=== PATIENT | female | born 1970 | race Caucasian/White ===

== ENCOUNTER → 2018-03-05 | Outpatient (CLI) | payer OTHER | LOC: LAB 07:20 | DX: J03.90 Acute tonsillitis, unspecified (principal) ==

== ENCOUNTER → 2018-05-17 | Outpatient (CLI) | payer OTHER ==
[2018-05-17 14:22] LABS: ALBUMIN 4.4 g/dL (3.5-5.0); AST-SGOT 29 U/L (14-36); CALCIUM 9.9 mg/dL (8.4-10.2); CARBON DIOXIDE 25 mmol/L (22-30); GLUCOSE 88 mg/dL (65-105); POTASSIUM 3.8 mmol/L (3.6-5.0); SODIUM 141 mmol/L (137-145); TOTAL BILIRUBIN 0.5 mg/dL (0.2-1.3); TOTAL PROTEIN 7.7 g/dL (6.3-8.2)
[2018-05-17 14:23] LABS: ALT/SGPT < 3 U/L (9-52)
[2018-05-17 14:24] LABS: EOS # 0.2 (0.04-0.40); EOS % 1.7 % (1.0-5.0); HEMATOCRIT 41.7 % (37.0-47.0); LYMPH# 2.5 (1.50-4.00); MEAN CELL VOLUME 86 fl (78-100); MEAN CORPUSCULAR HEMOGLOBIN 27 pg (27-31); MEAN CORPUSCULAR HGB CONC 31 g/dL (33-37); MEAN PLATELET VOLUME 9.9 fl (7.4-10.4); MONO # 0.9 (0.20-0.80); NEU # 5.2 (1.40-6.50); PLATELET COUNT 363 K/mm3 (130-400); RED BLOOD COUNT 4.87 M/mm3 (4.10-5.30); RED CELL DISTRIBUTION WIDTH 16.5 % (11.5-14.5); WHITE BLOOD COUNT 8.8 K/mm3 (4.8-10.8)
== END ==
LOC: LAB 13:43
PROVIDERS: Family Medicine
DX: Z01.419 Encounter for gynecological examination (general) (routine) without abnormal findings (principal); E03.9 Hypothyroidism, unspecified; E66.9 Obesity, unspecified; E61.1 Iron deficiency

== ENCOUNTER → 2019-05-16 | Outpatient (CLI) | payer OTHER ==
[2019-05-16 16:51] LABS: HEMATOCRIT 45.6 % (37.0-47.0); HEMOGLOBIN 14.4 g/dL (12.5-16.0); MEAN CELL VOLUME 94 fl (78-100); MEAN CORPUSCULAR HEMOGLOBIN 30 pg (27-31); MEAN CORPUSCULAR HGB CONC 32 g/dL (33-37); MEAN PLATELET VOLUME 9.3 fl (7.4-10.4); PLATELET COUNT 363 K/mm3 (130-400); RED BLOOD COUNT 4.85 M/mm3 (4.10-5.30); RED CELL DISTRIBUTION WIDTH 14.1 % (11.5-14.5); WHITE BLOOD COUNT 9.6 K/mm3 (4.8-10.8)
[2019-05-16 16:59] LABS: POTASSIUM 3.8 mmol/L (3.5-5.1)
[2019-05-16 17:00] LABS: ALBUMIN 4.3 g/dL (3.5-5.0)
[2019-05-16 17:01] LABS: CALCIUM 10.3 mg/dL (8.3-10.5)
[2019-05-16 17:02] LABS: TOTAL PROTEIN 7.8 g/dL (6.4-8.3)
[2019-05-16 17:04] LABS: TOTAL BILIRUBIN 0.3 mg/dL (0.2-1.2)
[2019-05-16 17:23] LABS: LYMPHOCYTE 32 % (20-51); MONOCYTE 10 % (3-10); NEUTROPHILS 58 % (42-75)
[2019-05-19 05:55] LABS: BAKERS YEAST ALLERGEN COUNT <0.35 kU/L (<0.35); CORN ALLERGEN COUNT <0.35 kU/L (<0.35); EGG WHITE ALLERGEN COUNT <0.35 kU/L (<0.35); MILK ALLERGEN COUNT <0.35 kU/L (<0.35); ORANGE ALLERGEN COUNT <0.35 kU/L (<0.35); PEANUT ALLERGEN COUNT <0.35 kU/L (<0.35); RICE ALLERGEN COUNT <0.35 kU/L (<0.35); SOYBEAN ALLERGEN COUNT <0.35 kU/L (<0.35); STRAWBERRY ALLERGEN COUNT <0.35 kU/L (<0.35); TOMATO ALLERGEN COUNT <0.35 kU/L (<0.35)
[2019-05-19 05:56] LABS: WHEAT ALLERGEN COUNT <0.35 kU/L (<0.35)
== END ==
LOC: LAB 16:31
PROVIDERS: Family Medicine
DX: E78.5 Hyperlipidemia, unspecified (principal); E03.9 Hypothyroidism, unspecified; K14.0 Glossitis; Z91.018 Allergy to other foods; R03.0 Elevated blood-pressure reading, without diagnosis of hypertension

== ENCOUNTER → 2019-07-20 | Outpatient (CLI) | payer OTHER | LOC: RAD 10:15 | DX: S52.124A Nondisplaced fracture of head of right radius, initial encounter for closed fracture (principal) ==

== ENCOUNTER 2019-11-28 08:30 | Outpatient (RCR) | payer OTHER | END 2019-11-28 09:00 | disposition still patient (30) | LOC: OT 08:30 | DX: S52.021B Displaced fracture of olecranon process without intraarticular extension of right ulna, initial encounter for open fracture type I or II (principal); S52.101A Unspecified fracture of upper end of right radius, initial encounter for closed fracture ==

== ENCOUNTER 2020-01-23 08:30 | Outpatient (RCR) | payer OTHER | END 2020-01-23 09:00 | disposition home or self-care (01) | LOC: OT 08:30 | DX: S52.101D Unspecified fracture of upper end of right radius, subsequent encounter for closed fracture with routine healing (principal) ==

== ENCOUNTER → 2020-05-06 | Outpatient (CLI) | payer OTHER ==
[2020-05-06 09:32] LABS: EOS # 0.1 (0.04-0.40); EOS % 1.4 % (1.0-5.0); HEMATOCRIT 43.8 % (37.0-47.0); HEMOGLOBIN 13.7 g/dL (12.5-16.0); LYMPH# 2.1 (1.50-4.00); MEAN CELL VOLUME 94 fl (78-100); MEAN CORPUSCULAR HEMOGLOBIN 30 pg (27-31); MEAN CORPUSCULAR HGB CONC 31 g/dL (33-37); MEAN PLATELET VOLUME 9.2 fl (7.4-10.4); MONO # 0.8 (0.20-0.80); NEU # 5.3 (1.40-6.50); PLATELET COUNT 340 K/mm3 (130-400); RED BLOOD COUNT 4.65 M/mm3 (4.10-5.30); RED CELL DISTRIBUTION WIDTH 13.9 % (11.5-14.5); WHITE BLOOD COUNT 8.4 K/mm3 (4.8-10.8)
[2020-05-06 09:38] LABS: POTASSIUM 4.2 mmol/L (3.5-5.1)
[2020-05-06 09:40] LABS: CALCIUM 9.1 mg/dL (8.3-10.5)
[2020-05-06 09:41] LABS: TOTAL PROTEIN 7.5 g/dL (6.4-8.3)
[2020-05-06 09:43] LABS: TOTAL BILIRUBIN 0.6 mg/dL (0.2-1.2)
== END ==
LOC: VAS 08:58 → LAB 08:58
PROVIDERS: Family Medicine
DX: R73.9 Hyperglycemia, unspecified (principal); R79.89 Other specified abnormal findings of blood chemistry

== ENCOUNTER → 2021-02-12 | Outpatient (CLI) | payer OTHER | LOC: RAD 09:19 | DX: M19.071 Primary osteoarthritis, right ankle and foot (principal) ==

== ENCOUNTER → 2021-05-13 | Outpatient (CLI) | payer OTHER ==
[2021-05-13 09:24] LABS: BASO # 0.06 K/mm3 (0.02-0.10); EOS # 0.12 K/mm3 (0.04-0.40); EOS % 1.3 % (1.0-5.0); HEMATOCRIT 43.8 % (37.0-47.0); HEMOGLOBIN 14.4 g/dL (12.5-16.0); LYMPH# 2.48 K/mm3 (1.50-4.00); MEAN CELL VOLUME 92 fl (78-100); MEAN CORPUSCULAR HEMOGLOBIN 30 pg (27-31); MEAN CORPUSCULAR HGB CONC 33 g/dL (33-37); MONO # 0.76 K/mm3 (0.20-0.80); NEU # 5.76 K/mm3 (1.40-6.50); PLATELET COUNT 329 K/mm3 (130-400); RED BLOOD COUNT 4.75 M/mm3 (4.10-5.30); RED CELL DISTRIBUTION WIDTH 13.6 % (11.5-14.5); WHITE BLOOD COUNT 9.2 K/mm3 (4.8-10.8)
[2021-05-13 12:57] LABS: ALBUMIN 4.1 g/dL (3.5-5.0)
[2021-05-13 12:58] LABS: CALCIUM 9.6 mg/dL (8.3-10.5)
[2021-05-13 12:59] LABS: TOTAL PROTEIN 7.4 g/dL (6.4-8.3)
[2021-05-13 13:01] LABS: TOTAL BILIRUBIN 0.9 mg/dL (0.2-1.2)
== END ==
LOC: LAB 09:02
PROVIDERS: Family Medicine
DX: Z00.00 Encounter for general adult medical examination without abnormal findings (principal); E78.5 Hyperlipidemia, unspecified; E03.9 Hypothyroidism, unspecified; N92.1 Excessive and frequent menstruation with irregular cycle; E66.9 Obesity, unspecified; E55.9 Vitamin D deficiency, unspecified

== ENCOUNTER → 2021-05-19 | Outpatient (CLI) | payer OTHER | LOC: RAD 11:00 → VAS 12:53 → RAD 13:00 → VAS 13:00 | DX: I73.9 Peripheral vascular disease, unspecified (principal); R73.9 Hyperglycemia, unspecified ==

== ENCOUNTER → 2021-11-14 | Outpatient (CLI) | payer OTHER ==
[2021-11-14 10:44] LABS: BASO # 0.04 K/mm3 (0.02-0.10); EOS # 0.13 K/mm3 (0.04-0.40); EOS % 1.3 % (1.0-5.0); HEMATOCRIT 42.6 % (37.0-47.0); HEMOGLOBIN 13.9 g/dL (12.5-16.0); LYMPH# 2.26 K/mm3 (1.50-4.00); MEAN CELL VOLUME 93 fl (78-100); MEAN CORPUSCULAR HEMOGLOBIN 30 pg (27-31); MEAN CORPUSCULAR HGB CONC 33 g/dL (33-37); MEAN PLATELET VOLUME 9.3 fl (7.4-10.4); MONO # 0.75 K/mm3 (0.20-0.80); NEU # 6.44 K/mm3 (1.40-6.50); PLATELET COUNT 307 K/mm3 (130-400); RED BLOOD COUNT 4.58 M/mm3 (4.10-5.30); RED CELL DISTRIBUTION WIDTH 13.4 % (11.5-14.5); WHITE BLOOD COUNT 9.7 K/mm3 (4.8-10.8)
[2021-11-14 10:55] LABS: ALBUMIN 4.2 g/dL (3.5-5.0); POTASSIUM 3.8 mmol/L (3.5-5.1)
[2021-11-14 10:56] LABS: CALCIUM 9.4 mg/dL (8.3-10.5)
[2021-11-14 10:57] LABS: TOTAL PROTEIN 7.5 g/dL (6.4-8.3)
[2021-11-14 10:59] LABS: TOTAL BILIRUBIN 0.6 mg/dL (0.2-1.2)
[2021-11-14 11:20] LABS: URINE APPEARANCE CLEAR; URINE BILIRUBIN NEGATIVE (NEGATIVE); URINE BLOOD NEGATIVE (NEGATIVE); URINE COLOR YELLOW; URINE GLUCOSE NEGATIVE (NEGATIVE); URINE KETONE NEGATIVE (NEGATIVE); URINE LEUKOCYTE ESTERASE TRACE (NEGATIVE); URINE NITRATE NEGATIVE (NEGATIVE); URINE PROTEIN(semi-quant) TRACE (NEGATIVE); URINE UROBILINOGEN NORMAL (NORMAL)
== END ==
LOC: LAB 10:23
PROVIDERS: Family Medicine
DX: E55.9 Vitamin D deficiency, unspecified (principal); E66.9 Obesity, unspecified; N92.1 Excessive and frequent menstruation with irregular cycle; E03.9 Hypothyroidism, unspecified; D50.9 Iron deficiency anemia, unspecified; R73.9 Hyperglycemia, unspecified; R03.0 Elevated blood-pressure reading, without diagnosis of hypertension; R30.9 Painful micturition, unspecified

== ENCOUNTER → 2022-06-22 | Outpatient (CLI) | payer SELFPAY | LOC: LAB 10:37 | DX: R73.9 Hyperglycemia, unspecified (principal) ==